=== PATIENT | female | born 1970 | race Caucasian/White ===

== ENCOUNTER 2017-10-14 10:49 | Outpatient (CLI) | payer BC | END 2017-10-14 10:50 | disposition home or self-care (01) | LOC: BICULT 10:49 | PROVIDERS: ATTEND Family Medicine | DX: N93.9 Abnormal uterine and vaginal bleeding, unspecified (principal); D50.9 Iron deficiency anemia, unspecified; N85.2 Hypertrophy of uterus; R93.8 Abnormal findings on diagnostic imaging of other specified body structures | CPT/HCPCS: 76856 ==

== ENCOUNTER 2018-01-01 15:01 | Outpatient (CLI) | payer BC ==
[2018-01-01 16:20] LABS: Hemoglobin 11.3 g/dL (12.0-16.0); Mean Corpuscular HGB CONC 31.4 g/dL (32.0-36.0); Mean Corpuscular Hemoglobin 28.1 pg (27.0-31.0); Mean Corpuscular Volume 89.4 fL (78.0-98.0); Mean Platelet Volume 7.9 fL (7.4-10.4); Platelet Count 538 thou/uL (130-400); Red Blood Cell (RBC) Count 4.02 mill/uL (4.20-5.40); White Blood Cell (WBC) Count 9.9 thou/uL (4.8-10.8)
== END 2018-01-01 15:02 | disposition home or self-care (01) ==
LOC: LABBT 15:01
PROVIDERS: ATTEND Obstetrics & Gynecology
DX: Z01.812 Encounter for preprocedural laboratory examination (principal); N92.0 Excessive and frequent menstruation with regular cycle
CPT/HCPCS: 85027; 86850; 86900; 86901

== ENCOUNTER 2018-01-05 09:11 | Day surgery (SDC) | payer BC ==
[2018-01-01 15:25] VITALS: BMI 32.3
--- NOTE | 2018-01-02 07:48 | HP ---
HISTORY OF PRESENT ILLNESS: Ms. Sun is a 47-year-old white female with 2 prior spontaneous vagina l deliveries and 1 with BTL and history of lupus arthritis. She is reporting heavy menstru al bleeding. It saturates through a full Maxi pad and tampon in 1 hour. She does have a small 2 cm intramural posterior fibroid that is not involving the uterine cavity noted on ultrasound with no oth er uterine masses or adnexal masses seen. She was originally seen in my office this past month and e ndometrial biopsy was also obtained which showed secretory endometrium. PAST MEDICAL HISTORY: Lupus, arthritis. PAST SURGICAL HISTORY: Partial pancreatectomy, appendectomy, and back and spine surgery along with c esarean section and tubal ligation. CURRENT MEDICATIONS: Gabapentin 800 mg t.i.d. by p.o., Paxil 40 mg daily. OB HISTORY: G3, P3, 2 SVDs with and bilateral tubal ligation as reported back per HPI. ALLERGIES: CODEINE and SULFA. PHYSICAL EXAMINATION: VITAL SIGNS: Height 5 feet 6 inches, weight 208 pounds with BMI of 33.6, blood pressure 118/76, puls e 87 and regular. HEENT: Within normal limits. CHEST: Clear to auscultation. HEART: Regular rate and rhythm. S1, S2 heart sounds, no murmurs, rubs or gallops. ABDOMEN: Soft, nontender, nondistended with no palpable masses. No hepatosplenomegaly, no palpable hernias over her previous incision sites. PELVIC: Vulva and vagina had no lesions. No significant bladder prolapse is appreciated. Cervix vazquez d no abnormal discharge or cervical motion tenderness. Pap smear obtained was normal, along with a n egative HPV screen. Uterus is small, nontender. Endometrial biopsy showed sound 10 cm with endometr ial biopsy performance. Adnexa were nontender with no masses. ASSESSMENT: This is a 47-year-old white female, , prior x1 with tubal ligation with m enorrhagia with a 2 cm intramural fibroid. The patient is a candidate for endometrial ablation. PLAN: Hysteroscopy, D&C with Cherelle endometrial ablation scheduled for 01/05/2018. Risks and benef its of surgery are discussed in detail.
[2018-01-05] MEDS ORDERED: ePHEDrine/0.9% NaCl/PF SYRINGE 50 mg/10 ml ONE (12:10)
[2018-01-05] MEDS ORDERED: Lidocaine 1% PF 5 ML VIAL ONE (12:10)
[2018-01-05] MEDS ORDERED: Ketorolac Tromethamine 30 MG/ML VIAL ONE (12:10)
[2018-01-05] MEDS ORDERED: PHENYLEPHRINE-NS 100 MCG/ML 10 ML SYRINGE ONE (12:10)
[2018-01-05] MEDS ORDERED: Dexamethasone 20 MG/5 ML VIAL ONE (12:10)
[2018-01-05] MEDS ORDERED: PROPOFOL 200 MG/20 ML VIAL ONE (12:10)
[2018-01-05] MEDS ORDERED: Ondansetron HCl/PF 4 MG/2 ML Vial ONE (12:10)
[2018-01-05] MEDS ORDERED: CEFAZOLIN/Water 2 GM/20 ML SYRINGE ONE (12:17)
[2018-01-05] MEDS ORDERED: Fentanyl 100 MCG/2 ML VIAL ONE ×2 (12:30→13:44)
[2018-01-05] MEDS ORDERED: Midazolam HCl 2 mg/2 ml Vial ONE (12:30)
[2018-01-05] MEDS ORDERED: Meperidine HCl/PF 25 MG/ML VIAL ONE (13:45)
[2018-01-05] MEDS ORDERED: HYDROcodone/Acetaminophen 5/325 mg Tablet ONE (14:28)
--- NOTE | 2018-01-05 14:40 | OP ---
DATE OF SURGERY: 01/05/2018 PREOPERATIVE DIAGNOSES: 1. A 47-year-old white female, previous section and tubal ligation with menorrhagia. 2. A 2 cm intramural posterior fibroid not involving endometrial cavity. POSTOPERATIVE DIAGNOSES: 1. A 47-year-old white female, previous section and tubal ligation with menorrhagia. 2. A 2 cm intramural posterior fibroid not involving endometrial cavity. PROCEDURE PERFORMED: Diagnostic hysteroscopy with D&C along with endometrial ablation with the [place] va device. SURGEON: Ebonie Bergeron M.D. ANESTHESIA: General. ESTIMATED BLOOD LOSS: Minimal. PATHOLOGY: Endometrial curettings. FINDINGS: 1. Fluid deficit post-procedure, 120 mL of normal saline. 2. Normal endometrial cavity and endocervical canal. TREATMENT TIME: 2 minutes. DISPOSITION: Recovery room, then day stay and plan for discharge home. DESCRIPTION OF OPERATIVE PROCEDURE: The patient previously received informed consent in regards to s nj. She was taken back to the operating room where she received a general endotracheal anestheti c agent without complications. She was placed in dorsal lithotomy position with the use of Simon sti rrups and prepped and draped in usual sterile fashion. In and out catheterization of bladder was per formed during the prep process. A sidearm speculum was placed in the vagina. Anterior lip of cervix grasped with a single-tooth tenaculum. The uterus sounded to 9 cm. The cervix was sequentially dil ated to size 16 Bunch dilator. Sharp curettage of the uterine cavity was carried out and these were sent for final pathology. The Cherelle endometrial ablation device was assembled and the length was s et for 5 cm, 4 cm cervix was noted. Under the Cherelle endometrial ablation device was then inserted, the fundus extended. The Cherelle device went through the cavity integrity check after the ba lloon had been inflated at the cervical balloon had been inflated. The safety checks were passed and the treatment of the ablation was carried out for 120 seconds. The Cherelle device was then removed. Repeat hysteroscopy of the endometrial cavity was performed showing a good blanching of the uterus, upper body, fundus, cornua with sparing of the endocervical canal. The patient was then awakened fr om anesthesia and tenaculum and speculum were removed with hemostasis confirmed.
== END 2018-01-05 15:05 | disposition home or self-care (01) ==
LOC: SDC 09:11
PROVIDERS: ATTEND Obstetrics & Gynecology
PROC: 0U5B8ZZ Destruction of Endometrium, Via Natural or Artificial Opening Endoscopic (ICD-10-PCS; principal; 2018-01-05)
PROC: 0UDB8ZX Extraction of Endometrium, Via Natural or Artificial Opening Endoscopic, Diagnostic (ICD-10-PCS; principal; 2018-01-05)
DX: N92.0 Excessive and frequent menstruation with regular cycle (principal); D25.1 Intramural leiomyoma of uterus; M19.90 Unspecified osteoarthritis, unspecified site; M32.9 Systemic lupus erythematosus, unspecified; Z79.899 Other long term (current) drug therapy; Z88.2 Allergy status to sulfonamides; Z88.5 Allergy status to narcotic agent; Z98.51 Tubal ligation status
CPT/HCPCS: 88305; 96374; 96375; J1100; J1885; J2001; J2175; J2250; J2405; J2704; J3010

== ENCOUNTER 2018-06-10 14:24 | Emergency (ER) | payer BC ==
[2018-06-10 15:25] LABS: Hemoglobin 12.3 g/dL (12.0-16.0); Mean Corpuscular HGB CONC 32.2 g/dL (32.0-36.0); Mean Corpuscular Hemoglobin 27.2 pg (27.0-31.0); Mean Corpuscular Volume 84.7 fL (78.0-98.0); Mean Platelet Volume 8.2 fL (7.4-10.4); Platelet Count 515 thou/uL (130-400); RBC Distribution Width 16.9 % (11.5-14.5); Red Blood Cell (RBC) Count 4.52 mill/uL (4.20-5.40); White Blood Cell (WBC) Count 11.6 thou/uL (4.8-10.8)
--- NOTE | 2018-06-10 15:25 | RAD ---
CHEST ONE VIEW: History: Chest pain. Comparison: 11-18-17 FINDINGS: The lungs are clear. No pneumothorax or effusion. Cardiac silhouette and mediastinal contours are wit hin normal limits. IMPRESSION: No acute intrathoracic abnormality. POS: [facility]
[2018-06-10] MEDS ORDERED: Ketorolac Tromethamine 30 MG/ML VIAL ONE (15:29)
[2018-06-10 15:41] LABS: ALT (SGPT) 24 U/L (8-55); AST (SGOT) 17 U/L (5-34); Albumin 4.2 g/dL (3.5-5.0); Alkaline Phosphatase 122 U/L (40-150); Anion Gap 10 mmol/L (10-20); BUN (Urea Nitrogen) 11 mg/dL (7.0-18.7); Bilirubin, Total 0.6 mg/dL (0.2-1.2); CK (CPK) 51 U/L (29-168); Calc. Creatinine Clearance 0 mL/min (70-130); Calcium 9.1 mg/dL (7.8-10.44); Carbon Dioxide 27 mmol/L (22-29); Chloride 105 mmol/L (98-107); Estimated GFR-MDRD 64; Globulin 3.2 g/dL (2.4-3.5); Glucose 89 mg/dL (70-105); Lipase 14 U/L (8-78); Potassium 3.2 mmol/L (3.5-5.1); Protein, Total 7.4 g/dL (6.0-8.3); Sodium 139 mmol/L (136-145)
[2018-06-10 15:54] LABS: Anisocytosis SLIGHT = 6-15 cells (100X) (0-5/hpf); Band 2 % (5-11); Eosinophils 6 % (0-10); Hypochromia SLIGHT = 6-15 cells (100X) (0-5/hpf); Lymphocytes 20 % (21-51); MDiff Complete? YES; Monocytes 8 % (0-10); Neutrophil 63 % (42-75); Platelet Morphology Comment Appears Increased; Reactive Lymphocytes 1 % (0-10); Target Cells SLIGHT = 2-5 cells (100X) (0-1/hpf)
== END 2018-06-10 15:35 | disposition home or self-care (01) ==
LOC: ERS 14:24
DX: M25.512 Pain in left shoulder (principal); G62.9 Polyneuropathy, unspecified; F17.210 Nicotine dependence, cigarettes, uncomplicated; M32.9 Systemic lupus erythematosus, unspecified
CPT/HCPCS: 71045; 80053; 82550; 83690; 84484; 85025; 93005; 96374; J1885

== ENCOUNTER 2018-08-25 04:47 | Emergency (ER) | payer BC ==
[2018-08-25 05:21] LABS: Bilirubin Negative (Negative); Blood, Urine Trace (Negative); Clarity CLEAR (Clear); Glucose, Urine (Dipstick) Negative (Negative); Leukocyte Negative (Negative); Nitrite Negative (Negative); Protein, Urine (Dipstick) Negative (Neg-Trace); Urobilinogen 0.2 mg/dL (0.2-1.0); pH, Urine 5.5 (5.0-9.0)
[2018-08-25 05:22] LABS: Specific Gravity, Urine 1.002 (1.002-1.036)
[2018-08-25 05:46] LABS: RBC/HPF 0-3 HPF (0-3)
[2018-08-25 05:47] LABS: Bacteria/HPF None Seen HPF (None Seen); Squamous Epithelial 0-3 HPF (0-3); WBC/HPF None Seen HPF (0-3)
[2018-08-25 05:49] LABS: Hyaline Casts/LPF NONE SEEN LPF (0-3 Hyaline)
[2018-08-25] MEDS ORDERED: Acetaminophen 500 MG TAB ONE (05:49)
[2018-08-25 06:35] LABS: #Eosinphils 0.4 thou/uL (0.0-0.7); #Lymphocytes 3.6 thou/uL (1.20-3.40); #Neutrophils 6.9 thou/uL (1.40-6.50); %Basophils 0.2 % (0.0-1.0); %Lymphocytes 30.4 % (21.0-51.0); %Monocytes 8.4 % (0.0-10.0); %Neutrophils 57.9 % (42.0-75.0); Hemoglobin 12.5 g/dL (12.0-16.0); Mean Corpuscular HGB CONC 33.3 g/dL (32.0-36.0); Mean Corpuscular Hemoglobin 29.1 pg (27.0-31.0); Mean Corpuscular Volume 87.4 fL (78.0-98.0); Mean Platelet Volume 8.3 fL (7.4-10.4); Platelet Count 429 thou/uL (130-400); RBC Distribution Width 17.1 % (11.5-14.5); Red Blood Cell (RBC) Count 4.29 mill/uL (4.20-5.40); White Blood Cell (WBC) Count 11.9 thou/uL (4.8-10.8)
[2018-08-25 06:36] LABS: ALT (SGPT) 18 U/L (8-55); AST (SGOT) 18 U/L (5-34); Albumin 4.2 g/dL (3.5-5.0); Anion Gap 17 mmol/L (10-20); BUN (Urea Nitrogen) 10 mg/dL (7.0-18.7); Bilirubin, Total 0.5 mg/dL (0.2-1.2); Calc. Creatinine Clearance 0 mL/min (70-130); Calcium 8.7 mg/dL (7.8-10.44); Carbon Dioxide 16 mmol/L (22-29); Chloride 110 mmol/L (98-107); Estimated GFR-MDRD 90; Globulin 3.2 g/dL (2.4-3.5); Glucose 106 mg/dL (70-105); Potassium 3.1 mmol/L (3.5-5.1); Protein, Total 7.4 g/dL (6.0-8.3); Sodium 140 mmol/L (136-145)
[2018-08-25 06:43] LABS: Alkaline Phosphatase 96 U/L (40-150)
[2018-08-25] MEDS ORDERED: Potassium Chloride 20 MEQ TAB ONE (06:54)
--- NOTE | 2018-08-25 07:22 | CT ---
CT OF THE BRAIN WITHOUT CONTRAST: Date: 08/25/18 INDICATION: History of grand mal seizure. COMPARISON: None. FINDINGS: No acute infarct, hemorrhage, or hydrocephalus is present. The septum pellucidum and third ventricle are midline. The skull and extracranial soft tissues are normal appearing. Mastoid air cells and visu alized paranasal sinuses are within normal limits. IMPRESSION: No acute intracranial abnormality. POS: [facility]
== END 2018-08-25 06:55 | disposition home or self-care (01) ==
LOC: ERS 04:47
DX: R56.9 Unspecified convulsions (principal); E87.6 Hypokalemia; G62.9 Polyneuropathy, unspecified; F17.210 Nicotine dependence, cigarettes, uncomplicated; Z71.6 Tobacco abuse counseling; Z79.899 Other long term (current) drug therapy
CPT/HCPCS: 36415; 70450; 80053; 81003; 81015; 85025; 93005; 99406

== ENCOUNTER 2020-02-03 08:02 | Outpatient (CLI) | payer BC, OTHER ==
[2020-02-03 16:32] LABS: Hemoglobin 13.1 g/dL (12.0-16.0); Mean Corpuscular HGB CONC 32.1 G/DL (32.0-36.0); Mean Corpuscular Hemoglobin 27.4 PG (27.0-33.0); Mean Corpuscular Volume 85.4 fl (80.0-100.0); Mean Platelet Volume 10.8 fl (7.4-10.4); Platelet Count 540 10x3/uL (130-400); RBC Distribution Width 17.3 % (11.5-14.5); Red Blood Cell (RBC) Count 4.78 10x6/uL (3.90-5.20); White Blood Cell (WBC) Count 10.8 10x3/uL (4.5-11.0)
[2020-02-03 16:41] LABS: BHCG - Serum Negative (NEGATIVE); Pregs Control Background? CLEAR/WHITE (CLR/WHITE); Pregs Control Bar Appear? YES (CONTROL BAR)
[2020-02-04 11:55] LABS: SARS-CoV-2 MS2 Positive; SARS-CoV-2 N Gene Negative; SARS-CoV-2 S Gene Negative; SARS-CoV-2 by NAA Not Detected (NotDetected); SARS-CoV-2 orf1ab Negative
== END 2020-02-03 08:03 | disposition home or self-care (01) ==
LOC: LABBT 08:02
PROVIDERS: ATTEND Obstetrics & Gynecology
DX: Z01.812 Encounter for preprocedural laboratory examination (principal); Z20.828 Contact with and (suspected) exposure to other viral communicable diseases; N92.0 Excessive and frequent menstruation with regular cycle
CPT/HCPCS: 84703; 85027; 86850; 86900; 86901; 87635; U0003

== ENCOUNTER 2020-02-08 07:56 | Observation (INO) | payer BC ==
--- NOTE | 2020-02-07 06:53 | HP ---
HISTORY OF PRESENT ILLNESS: Ms. Sun is a 49-year-old white female G3, P3, prior two vaginal deliveries and a section, who had a history of a prior endometrial ablation Cherelle type in 2017. The patient did well and was amenorrheic after the ablation until recently when she began having heavy menstrual bleeding. She has been having bleeds for 2 to 3 weeks at a time and they are very painful. She was administered some Celebrex, which did help with the pain, but she continues to have the flow and a constant crampy sensation. She had an ultrasound in my office recently showing an enlarged globular uterus measuring 12.6 x 7 x 6.15 cm with a 7 mm endometrial thickness. No adnexal masses were seen. Endometrial biopsy was performed at the visit on January 13, which showed benign findings. It is felt that she may have adenomyosis with some post ablation type syndrome with chronic pain. PAST MEDICAL HISTORY: Notable for the rheumatoid arthritis followed by a java analyst, Dr. Cool and currently on Remicade. Also significant for previous tubal ligation, appendectomy, back and spine surgery, as noted hysteroscopy with D and C, endometrial ablation in 2018. FAMILY HISTORY: Significant for carcinoma of breast and carcinoma of stomach in maternal grandmother. CURRENT MEDICATIONS: 1. Celebrex 200 mg tablet b.i.d. 2. Gabapentin 800 mg tablet t.i.d. 3. Keppra 250 mg tablet two b.i.d. 4. Paxil 40 mg daily. 5. Vitamin D. 6. Remicade infusions for rheumatoid arthritis. ALLERGIES: NOTED, SHE HAS ALLERGIES TO CODEINE AND SULFA DRUGS, BUT IS ABLE TO TAKE CELEBREX. PHYSICAL EXAMINATION: VITAL SIGNS: Height is 5 feet 6 inches, weight 237, BMI 38.3, blood pressure 128/86, pulse 69, respirations 18, and O2 saturation on room air 99%. HEENT: Within normal limits. CHEST: Clear to auscultation. HEART: Regular rate and rhythm. S1 and S2 heart sounds. No murmurs, rubs, or gallops. ABDOMEN: Soft, nontender, and nondistended. PELVIC: Vulva and vagina had no lesions. Cervix had no lesions. Pap smear and HPV were normal from 2018. Uterus was globularly enlarged and anteverted and tender on exam and during endometrial biopsy, she sounded to 8 cm. Adnexa showed no masses. ASSESSMENT: This is a 49-year-old white female G3, P3, prior section, Cherelle endometrial ablation, now with recurrent bleeding and globularly enlarged uterus suggestive of adenomyosis. 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 Recent endometrial biopsy was benign. PLAN: For definitive surgical therapy and we will proceed with robotic TLH-BSO on 02/08/2020. Job ID: [id number]
[2020-02-07 12:15] VITALS: BMI 38.0
[2020-02-08] MEDS ORDERED: Gabapentin 300 MG CAP ONE (08:26)
[2020-02-08] MEDS ORDERED: Famotidine/PF 20 mg/2ml Vial ONE ×2 (08:26→09:38)
[2020-02-08] MEDS ORDERED: CeleCOXIB 100 MG CAP ONE (08:26)
[2020-02-08] MEDS ORDERED: Bupivacaine/Epinephrine 0.25% 30 ML VIAL ONE (11:21)
[2020-02-08] MEDS ORDERED: Fentanyl 100 MCG/2 ML VIAL ONE ×4 (11:36→15:22)
[2020-02-08] MEDS ORDERED: Lidocaine 1% w/Epinephrine 1:100K 20 ML VIAL ONE (12:09)
[2020-02-08] MEDS ORDERED: Bupivacaine PF 0.5% 30 ML VIAL ONE (12:09)
[2020-02-08] MEDS ORDERED: Rocuronium Bromide 10 MG/ML (10ML VIAL) ONE (12:24)
[2020-02-08] MEDS ORDERED: Dexamethasone 20 MG/5 ML VIAL ONE (12:24)
[2020-02-08] MEDS ORDERED: Ondansetron PF 4 MG/2 ML Vial ONE (12:24)
[2020-02-08] MEDS ORDERED: PROPOFOL 200 MG/20 ML VIAL ONE (12:24)
[2020-02-08] MEDS ORDERED: Glycopyrrolate 0.2 MG/ML 5 ML SYRINGE ONE (12:24)
[2020-02-08] MEDS ORDERED: Morphine 4 MG/ML VIAL SLOW IVP PRN (13:59)
[2020-02-08] MEDS ORDERED: Bisacodyl 10 MG SUPP PR PRN (13:59)
[2020-02-08] MEDS ORDERED: Ondansetron PF 4 MG/2 ML Vial IVP PRN (13:59)
[2020-02-08] MEDS ORDERED: Zolpidem Tartrate 5 MG TAB PO PRN (13:59)
[2020-02-08] MEDS ORDERED: Promethazine HCl 25 MG/ML VIAL IM PRN (13:59)
[2020-02-08] MEDS ORDERED: diphenhydrAMINE 25 MG CAP PO PRN (13:59)
[2020-02-08] MEDS ORDERED: Estradiol 0.05mg/24 Hour Patch (Weekly) TD SCH (14:00)
[2020-02-08] MEDS ORDERED: Albuterol Sulfate 2.5 mg/3 ml Neb NEB PRN (14:30)
[2020-02-08] MEDS ORDERED: HYDROmorphone 0.5 MG/0.5 ML SYRINGE ONE (14:51)
[2020-02-08] MEDS: Lactated Ringer's 1,000 ML IV SCH ×2 (15:57→23:14)
[2020-02-08] MEDS: Simethicone Chewable 80 MG TAB PO PRN ×2 (16:38→20:50)
[2020-02-08] MEDS: Ketorolac Tromethamine 30 MG/ML VIAL IVP SCH (17:47)
[2020-02-08] MEDS: levETIRAcetam 500 MG TAB PO SCH (20:46)
[2020-02-08] MEDS: Ibuprofen 800 MG TAB PO SCH (20:46)
[2020-02-08] MEDS: traMADol HCl 50 MG TAB PO PRN (20:50)
[2020-02-08] MEDS ORDERED: CeleCOXIB 100 MG CAP PO SCH ×2 (21:00)
--- NOTE | 2020-02-08 21:48 | OP ---
DATE OF PROCEDURE: 02/08/2020 PREOPERATIVE DIAGNOSES: 1. A 49-year-old white female, prior endometrial ablation with recurrence of menorrhagia. 2. Chronic pelvic pain, severe dysmenorrhea. 3. Most likely post ablation versus adenomyosis. POSTOPERATIVE DIAGNOSES: 1. A 49-year-old white female, prior endometrial ablation with recurrence of menorrhagia. 2. Chronic pelvic pain, severe dysmenorrhea. 3. Most likely post ablation versus adenomyosis. PROCEDURE PERFORMED: Robotic total laparoscopic hysterectomy and bilateral salpingo-oophorectomy. ARTIST'S REPRESENTATIVE SURGEON: Terry Lora D.O. ANESTHESIA: General endotracheal. ESTIMATED BLOOD LOSS: 50 mL. COMPLICATIONS: None. FINDINGS: 1. Normal bilateral tubes and ovaries. 2. Uterus globularly enlarged, most likely consistent with adenomyosis. 3. Clear urine present in Marquez catheter postprocedure and bladder was watertight to distention over 300 mL postprocedure. Bilateral ureteral peristalsis visualized postprocedure. PATHOLOGY: Uterus, cervix, bilateral tubes and ovaries. DISPOSITION: To recovery room, stable. DESCRIPTION OF PROCEDURE: The patient previously received informed consent in regard to surgery. She was taken back to the operating room, where she received a general endotracheal anesthetic agent without complications. She was placed in the dorsal lithotomy position with the use of Simon stirrups and prepped and draped in usual sterile fashion. A Marquez catheter was placed at this time. Side-arm speculum was placed into vagina, and anterior lip of the cervix was grasped with single-tooth tenaculum. The uterus sounded to 10 cm. A size 8 cm NILES uterine manipulator was placed along with a 4.0 cm cervical cup. Tenaculum and speculum were removed. Attention was then turned to the abdomen, where perspective trocar sites were infiltrated with 0.5% Marcaine with epinephrine. A supraumbilical incision was made. Veress needle was entered into the peritoneal cavity. The patient's pressure was less than 5 mm, and the abdomen was insufflated to patient pressure of 15 with approximately 5 L of carbon dioxide gas. Veress needle was then removed. A size 12 mm trocar was placed. Laparoscope was introduced through the trocar sleeve confirming proper entry. Additional bilateral lower quadrant 8 mm trocars were placed under laparoscopic guidance and an 11 mm right upper quadrant port. The patient was placed in Trendelenburg, and the robot was docked by my assistants. I broke scrub and then proceeded to carry out the surgery from the operative console. The uterus was elevated from the pelvis. The left IP ligament was isolated. It was coagulated hugging close to the ovary with bipolar fenestrated cautery and transected. Serial transection of broad ligament hugging close to uterus was carried down until the left round ligament was reached. It was coagulated and transected. The anterior leaf of the broad ligament was then entered, and the vesicouterine peritoneum was incised in a layering technique. The bladder was safely brought past the cervical vaginal margin. The left uterine vessels were skeletonized and coagulated in the internal cervical os region. This was repeated in likewise fashion on the patient's right side again. Right IP ligament was coagulated and transected. Serial coagulation of broad ligament with transection up to the right round ligament was carried out, which was transected and incised. Again, vesicouterine peritoneum was dissected in layering technique, dropping the bladder atraumatically past the cervical vaginal margin. The bladder was distended to confirm its intactness and its safe distance from the anticipated anterior colpotomy. The anterior colpotomy was made of the cervix from 12 o'clock to 3 o'clock to 12 o'clock to 9 o'clock and the uterine vessels at these areas were coagulated securing hemostasis. Posterior colpotomy was completed from 6 o'clock to 9 o'clock and 6 o'clock to 3 o'clock. The specimen was delivered in the vaginal vault. My blood and plasma laboratory assistant then exchanged my monopolar scissors with a Marquis needle rickshaw driver. The vaginal cuff was cauterized of any areas that were bleeding at this time prior to closure of the vaginal cuff with the Stratafix suture. The Stratafix suture was then brought into the pelvis and I closed the vaginal cuff starting at the right angle full-thickness closure to the left angle and back toward the right angle closing the vaginal cuff intact and with hemostasis noted. The pelvis was irrigated. All the pedicle sites were confirmed to be hemostatic. The robot was then undocked. Trocar sleeves were removed. A deep stitch of 0 Vicryl was then placed in a [id number] stitch fashion closing the fascia. The remainder of trocar sites were closed with 4-0 Monocryl suture and Dermabond. A sponge stick was utilized to check the vaginal cuff vaginally and it was hemostatic. The patient was awakened from anesthesia and transferred to recovery room in stable condition. Job ID: [id number]
[2020-02-09] MEDS: Ketorolac Tromethamine 30 MG/ML VIAL IVP SCH ×2 (00:03→06:22)
[2020-02-09 05:47] LABS: Hemoglobin 11.9 g/dL (12.0-16.0); Mean Corpuscular HGB CONC 32.8 g/dL (32.0-36.0); Mean Corpuscular Hemoglobin 29.2 pg (27.0-31.0); Mean Corpuscular Volume 88.9 fL (78.0-98.0); Mean Platelet Volume 8.4 fL (7.4-10.4); Platelet Count 419 thou/uL (130-400); RBC Distribution Width 15.6 % (11.5-14.5); Red Blood Cell (RBC) Count 4.09 mill/uL (4.20-5.40); White Blood Cell (WBC) Count 19.2 thou/uL (4.8-10.8)
[2020-02-09] MEDS: traMADol HCl 50 MG TAB PO PRN (06:16)
[2020-02-09] MEDS: Ibuprofen 800 MG TAB PO SCH (06:16)
[2020-02-09] MEDS: Lactated Ringer's 1,000 ML IV SCH (06:22)
--- NOTE | 2020-02-09 08:26 | DIS ---
DATE OF ADMISSION: 02/08/2020 DATE OF DISCHARGE: 02/09/2020 DATE OF SURGERY: 02/08/2020. DIAGNOSES: Menorrhagia, pelvic pain, suspected clinical adenomyosis, and previous endometrial ablation. PROCEDURES PERFORMED: Robotic total laparoscopic hysterectomy and bilateral salpingo-oophorectomy. SUMMARY OF HOSPITAL COURSE: Ms. Sun is a 49-year-old white female, who started having return of heavy menstrual bleeding. She had a previous endometrial ablation in the past. 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 She underwent definitive surgical therapy with a robotic TLH-BSO on 02/07. Postoperatively, the patient has done well. She is ambulating, voiding, tolerating regular diet without complications. Her vital signs remained stable. She has had adequate pain control on oral pain medications. Her hematocrit this morning on postop day #1 is 36.3. Plan is for discharge home, has followup in 2 and 6 weeks. DISCHARGE MEDICATIONS: 1. Tramadol 50 mg q.6 hours p.r.n. pain. 2. Bkks-lzs-holflho ibuprofen or Celebrex which the patient takes for chronic arthritis due to her rheumatoid diagnosis. Pathology is pending at time of discharge. Job ID: [id number]
[2020-02-09] MEDS: levETIRAcetam 500 MG TAB PO SCH (08:49)
[2020-02-09] MEDS ORDERED: PARoxetine 20 MG TAB PO SCH (09:00)
[2020-02-09 11:22] VITALS: BP 131/76; TEMP 98.3
[2020-02-09] MEDS ORDERED: HYDROcodone/Acetaminophen 5/325 mg Tablet PO SCH (11:30)
== END 2020-02-09 11:54 | disposition home or self-care (01) ==
LOC: SDC 07:56 → 3SE 15:44
PROVIDERS: ADMIT Obstetrics & Gynecology; ATTEND Obstetrics & Gynecology
PROC: 0UT94ZZ Resection of Uterus, Percutaneous Endoscopic Approach (ICD-10-PCS; principal; 2020-02-08)
PROC: 0UT24ZZ Resection of Bilateral Ovaries, Percutaneous Endoscopic Approach (ICD-10-PCS; 2020-02-08)
PROC: 0UT74ZZ Resection of Bilateral Fallopian Tubes, Percutaneous Endoscopic Approach (ICD-10-PCS; 2020-02-08)
DX: N80.0 Endometriosis of uterus (principal); D25.9 Leiomyoma of uterus, unspecified; N73.6 Female pelvic peritoneal adhesions (postinfective); M06.9 Rheumatoid arthritis, unspecified; G89.29 Other chronic pain; R10.2 Pelvic and perineal pain; Z79.899 Other long term (current) drug therapy; Z88.2 Allergy status to sulfonamides; Z88.5 Allergy status to narcotic agent; Z98.1 Arthrodesis status
CPT/HCPCS: 36415; 85027; 86850; 86900; 86901; 88307; 96374; 96375; 96376; G0378; J0690; J1100; J1170; J1885; J2270; J2405; J2704; J3010; J7620; S0020; S0028

== ENCOUNTER 2020-10-05 11:36 | Emergency (ER) | payer BC ==
[2020-10-05 12:53] LABS: #Basophils 0.1 thou/uL (0.0-0.2); #Eosinphils 0.6 thou/uL (0.0-0.7); #Lymphocytes 3.4 thou/uL (1.20-3.40); #Monocytes 0.8 thou/uL (0.11-0.59); #Neutrophils 4.3 thou/uL (1.40-6.50); %Basophils 0.9 % (0.0-1.0); %Eosinophils 6.2 % (0.0-10.0); %Lymphocytes 36.6 % (21.0-51.0); %Monocytes 9.1 % (0.0-10.0); %Neutrophils 47.2 % (42.0-75.0); Hemoglobin 14.3 g/dL (12.0-16.0); Mean Corpuscular HGB CONC 34.7 g/dL (32.0-36.0); Mean Corpuscular Hemoglobin 32.2 pg (27.0-31.0); Mean Corpuscular Volume 92.7 fL (78.0-98.0); Mean Platelet Volume 8.5 fL (7.4-10.4); Platelet Count 384 thou/uL (130-400); RBC Distribution Width 15.8 % (11.5-14.5); Red Blood Cell (RBC) Count 4.44 mill/uL (4.20-5.40); White Blood Cell (WBC) Count 9.2 thou/uL (4.8-10.8)
[2020-10-05 12:58] LABS: BHCG - Serum Negative (NEGATIVE); Pregs Control Background? CLEAR/WHITE (CLR/WHITE); Pregs Control Bar Appear? YES (CONTROL BAR)
[2020-10-05 13:00] LABS: Bacteria/HPF None Seen HPF (None Seen); Bilirubin Negative (Negative); Blood, Urine Negative (Negative); Calcium Oxalate Crystals 4+ HPF (None Seen); Clarity Clear (Clear); Glucose, Urine (Dipstick) Normal (Negative); Ketone, Urine Trace mg/dL (Negative); Leukocyte Negative Leu/uL (Negative); Nitrite Negative (Negative); Pregnancy Test - Urine (BHCG) Negative (Negative); Pregu Control Background? CLEAR/WHITE (CLR/WHITE); Pregu Control Bar Appear? YES (CONTROL BAR); Protein, Urine (Dipstick) 50 mg/dL (Neg-Trace); RBC/HPF 0-3 HPF (0-3); Specific Gravity 1.026 (1.002-1.036); Specific Gravity, Urine 1.026 (1.002-1.036); Urobilinogen Normal mg/dL (Less than 2); WBC/HPF 0-3 HPF (0-3); pH, Urine 6.5 (5.0-9.0)
[2020-10-05] MEDS ORDERED: Ondansetron PF 4 MG/2 ML Vial ONE (13:04)
[2020-10-05] MEDS ORDERED: Famotidine 20 MG TAB ONE (13:04)
[2020-10-05] MEDS ORDERED: Fentanyl 100 MCG/2 ML VIAL ONE (13:04)
[2020-10-05] MEDS ORDERED: Famotidine/PF 20 mg/2ml Vial ONE (13:05)
[2020-10-05 13:15] LABS: ALT (SGPT) 26 U/L (8-55); AST (SGOT) 25 U/L (5-34); Alkaline Phosphatase 111 U/L (40-110); Anion Gap 14 mmol/L (10-20); BUN (Urea Nitrogen) 10 mg/dL (9.8-20.1); Bilirubin, Total 0.4 mg/dL (0.2-1.2); Calc. Creatinine Clearance 0 mL/min (70-130); Calcium 9.6 mg/dL (7.8-10.44); Carbon Dioxide 23 mmol/L (22-29); Chloride 103 mmol/L (98-107); Globulin 3.6 g/dL (2.4-3.5); Glucose 103 mg/dL (70-105); Lipase 14 U/L (8-78); Potassium 3.1 mmol/L (3.5-5.1); Protein, Total 7.6 g/dL (6.0-8.3); Sodium 137 mmol/L (136-145)
== END 2020-10-05 14:47 | disposition home or self-care (01) ==
LOC: ERS 11:36
DX: R10.13 Epigastric pain (principal); R19.7 Diarrhea, unspecified; R11.0 Nausea; F17.210 Nicotine dependence, cigarettes, uncomplicated
CPT/HCPCS: 76705; 80053; 81003; 81015; 81025; 83690; 84484; 84703; 85025; 93005; 96374; 96375; J2405; J3010; S0028

== ENCOUNTER 2021-07-13 12:04 | Outpatient (CLI) | payer BC | END 2021-07-13 12:05 | disposition home or self-care (01) | LOC: TBSIIMAG 12:04 | PROVIDERS: ATTEND Neurological Surgery | DX: M54.2 Cervicalgia (principal); M48.02 Spinal stenosis, cervical region; M50.321 Other cervical disc degeneration at C4-C5 level; Z98.1 Arthrodesis status | CPT/HCPCS: 72141 ==

== ENCOUNTER 2023-01-14 11:08 | Outpatient (CLI) | payer BC | END 2023-01-14 11:09 | disposition home or self-care (01) | LOC: MRI 11:08 | PROVIDERS: ATTEND Nurse Practitioner Family | DX: M47.26 Other spondylosis with radiculopathy, lumbar region (principal); M47.817 Spondylosis without myelopathy or radiculopathy, lumbosacral region | CPT/HCPCS: 72148 ==